=== PATIENT | male | born 1970 | race Caucasian/White ===

== ENCOUNTER 2019-09-23 13:39 | Observation (INO) | payer OTHER, SELFPAY ==
[2019-09-23 13:53] VITALS: BP 121/88; PULSE 89; RESP 19; TEMP 36.9; O2SAT 99
[2019-09-23 14:10] LABS: Basophils Percent Auto 0.3 % (0.2-1.2); Eosinophils Absolute Auto 0.1 K/mm3 (0-0.3); Eosinophils Percent Auto 0.9 % (0-4.4); Hematocrit 46.7 % (42.0-52.0); Hemoglobin 16.6 g/dL (14.0-18.0); Immature Granulocyte Absolute 0.03 K/mm3 (0.00-0.031); Immature Granulocyte Percent A 0.4 % (0-0.5); Lymphocytes Absolute Auto 1.25 K/mm3 (0.9-3.2); Mean Corpuscular HGB Conc 35.5 g/dl (32-36); Mean Corpuscular Volume 92.8 fl (80-100); Mean Platelet Volume 10.5 fl (7.4-10.4); Monocytes Absolute Auto 0.5 K/mm3 (0.1-0.6); Monocytes Percent Auto 6.8 % (2.6-8.5); Neutrophils Absolute Auto 5.9 K/mm3 (1.3-6.7); Neutrophils Percent Auto 75.6 % (45.5-73.1); Platelet Count Result 323 k/mm3 (150-375); Red Blood Count 5.03 M/mm3 (4.6-6.20); Red Cell Distribution Width 11.8 % (11.5-14.5); White Blood Count 7.8 K/mm3 (4.5-10.0)
[2019-09-23 14:20] LABS: Add Urine Microscopic? YES; Appearance Urine Cloudy (Clear); Bacteria Urine Trace /hpf; Bilirubin Urine Negative (Negative); Calcium Oxalate Crystals Urine Present /hpf; Color Urine Yellow (Yellow); Glucose Urine UA Negative (Negative); Hyaline Casts Urine 50+ /lpf; Ketones Urine Negative (Negative); Leukocyte Esterase Ur Negative LEU/UL (Negative); Mucus Urine Few /lpf; Nitrate Urine Negative (Negative); Protein Urine 1+ mg/dL (Negative); Specific Grav Ur 1.029 (1.001-1.035); Squamous Epithelial Cell Urine Rare /hpf (Few); Urobilinogen Urine Negative mg/dL (<2.0)
[2019-09-23 14:23] LABS: Blood Urine Negative (Negative)
[2019-09-23 14:24] LABS: Blood Urea Nitrogen 38 mg/dL (9-20); Calcium 10.5 mg/dL (8.4-10.2); Carbon Dioxide 26 mmol/L (22-30); Chloride 99 mmol/L (98-107); Creatine Kinase 1184 U/L (55-170); Estimated CRCL calculation 43 ml/min; Estimated Glomerular Filt Rate 38; Glucose 96 mg/dL (75-110); Potassium 4.3 mmol/L (3.4-5.0); Sodium 137 mmol/L (137-145)
[2019-09-23 15:20] VITALS: BP 129/84; PULSE 75; RESP 15; O2SAT 100
--- NOTE | 2019-09-23 15:45 | ED.GENADULT ---
HPI - General Adult General Chief complaint: Unspecified Stated complaint: dehydrated? Time Seen by Provider: 09/23/19 15:38 Source: patient Limitations: no limitations History of Present Illness HPI narrative: 49 years old white male presents with general muscle cramps mainly of the fingers and toes after working in 2 days ago and very hot environment, 99 Fahrenheit moving furniture from 1 house to another house. Related Data Allergies Allergy/AdvReac Type Severity Reaction Status Date / Time No Known Allergies Allergy Verified 09/23/19 13:55 Review of Systems Review of Systems: Narrative: CONSTITUTIONAL: Denies fever, chills, or sweats. EYES: Denies visual changes, redness, or discharge. ENT: Denies rhinorrhea, congestion, sore throat, or otalgia. CARDIOVASCULAR: Denies chest pain, palpitations, or edema. RESPIRATORY: Denies cough or dyspnea. GASTROINTESTINAL: Denies abdominal pain, nausea, vomiting, or diarrhea. GENITOURINARY: Denies dysuria or hematuria. SKIN: Denies rash or itching. MUSCULOSKELETAL: Denies back pain, joint pain, or myalgia. NEUROLOGIC: Denies headache, numbness, or weakness. PSYCHIATRIC: Denies anxiety or depression. PMFSH Family History Family History Grandparent Family history of cardiovascular disease Father Family history of cardiovascular disease, Onset Age: 48 Social History Social History Smoking status: Never smoker Alcohol intake: current Exam Narrative: Exam Narrative: General appearance: Well-developed, well-nourished Skin: Normal color Head: Normocephalic, nontraumatic Eyes: Clear conjunctiva ENT: Oropharynx normal, ears normal, nose normal Neck: Supple, nontender Chest and respiratory: Airway patent, no respiratory distress, no accessory muscle use Heart: Regular rate/rhythm Abdomen: Soft, nontender, no organomegaly, quiet bowel sounds Vascular: Normal peripheral pulses, normal capillary refill. Musculoskeletal: Normal range of motion, nontender back Neurologic: Alert and oriented ?3, NURSING PROGRAM CHAIR is normal as tested, no gross motor deficit Course Course Emergency Course: Improving Vital Signs Vital signs: Vital Signs Temperature 36.9 C 09/23/19 13:53 Pulse Rate 89 09/23/19 13:53 Respiratory Rate 19 09/23/19 13:53 Blood Pressure 121/88 09/23/19 13:53 Pulse Oximetry 99 09/23/19 13:53 Temperature 36.9 C 09/23/19 13:53 Pulse Rate 75 09/23/19 15:20 Respiratory Rate 15 09/23/19 15:20 Blood Pressure 129/84 09/23/19 15:20 Pulse Oximetry 100 09/23/19 15:20 Medical Decision Making MDM Narrative Medical decision making narrative: Dehydration, kidney failure, rhabdomyolysis is my concern. Labs, IV fluids ordered. Further plan to follow Vital Signs Vital Signs: Vital Signs Temperature 36.9 C 09/23/19 13:53 Pulse Rate 89 09/23/19 13:53 Respiratory Rate 19 09/23/19 13:53 Blood Pressure 121/88 09/23/19 13:53 Pulse Oximetry 99 09/23/19 13:53 Temperature 36.9 C 09/23/19 13:53 Pulse Rate 75 09/23/19 15:20 Respiratory Rate 15 09/23/19 15:20 Blood Pressure 129/84 09/23/19 15:20 Pulse Oximetry 100 09/23/19 15:20 Lab Data Result diagrams: 09/23/19 13:58 09/23/19 13:58 Labs: Lab Results 09/23/19 09/23/19 09/23/19 Range/Units 13:58 13:58 14:04 WBC 7.8 (4.5-10.0) K/mm3 RBC 5.03 (4.6-6.20) M/mm3 Hgb 16.6 (14.0-18.0) g/dL Hct 46.7 (42.0-52.0) % MCV 92.8 (80-100) fl MCH 33.0 (26-34) pg MCHC 35.5 (32-36) g/dl RDW 11.8 (11.5-14.5) % Plt Count 323 (150-3
[2019-09-23 16:03] VITALS: BP 124/89; PULSE 79; RESP 14; O2SAT 100
[2019-09-23] MEDS: SODIUM CHLORIDE 0.9% IV 1,000 ML 999 ML IV CONT ×2 (16:03→17:14)
[2019-09-23 17:13] VITALS: BP 133/90; PULSE 80; RESP 17; O2SAT 100
--- NOTE | 2019-09-23 17:23 | PC.NURSE ---
This patient, Enoch Woodson, was admitted to Medical Room 348-01. Patient/family oriented to hospital policies and general routines including ID bracelet, bed and alarms, visiting hours, pain management, procedures, bathroom and other care routines, personal items, smoking policy, room service/diet, and visiting hours. Valuables list has been completed. Information on how to activate the Rapid Response Team has been discussed. Patient/Family are encouraged to report perceived risks to care and to ask questions if they do not understand what they are told or what they should do.
[2019-09-23 17:46] VITALS: BP 133/90; PULSE 72; RESP 16; TEMP 36.7; O2SAT 99; BMI 27.9
[2019-09-23] MEDS: LACTATED RINGERS 1,000 ML 150 ML IV CONT (18:57)
[2019-09-23 21:10] VITALS: BP 101/71; PULSE 73; RESP 16; TEMP 37.1; O2SAT 99
--- NOTE | 2019-09-24 00:27 | PM.IMHP ---
H&P: HPI History of Present Illness Chief complaint: dehydration,jann,rhabdomyolysis Narrative: Enoch Woodson is a 49 year old male who has no prior medical history of taking any home medications. The patient stated he was out in the heat today. He has been moving out of his old house into his new house over the last 2 days. The patient stated that he was drenched with sweat and that he had been drinking some Gatorade. 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 He denied any nausea or any chest pain. He had no fever chills. The telecom specialist of the new home told him to go to the emergency room because he looks like he was dehydrated and had heat exhaustion. The patient received IV fluids once he got here and is now feeling much better. The cramps have resolved. His temperature was 36.9 degree C. his creatinine was 1.9 BUN 38. Kinase is 1184. A nationally Toradol had been ordered for the patient but the ER doctor stated that he canceled it when he relies the patient was in acute renal failure. Date of service 09/23/2019 Review of Systems Review of Systems: All systems reviewed & are unremarkable except as noted in HPI and below Constitutional: Constitutional: Reports as per HPI and Reports no additional constitutional complaints Eyes: Eyes: Reports as per HPI and Reports no additional eye complaints ENT: Reports system reviewed and no additional complaints, except as documented and Reports Normal hearing present Cardiovascular: Cardiovascular: Reports no additional cardiovascular complaints Respiratory: Respiratory: Reports no additional respiratory complaints and Reports no additional respiratory complaints Gastrointestinal: Gastrointestinal: Reports as per HPI and Reports no additional gastrointestinal complaints Musculoskeletal: Musculoskeletal: Reports no additional musculoskeletal complaints Integumentary/Breasts: Skin/Breast: Reports system reviewed and no additional complaints, except as docu and Reports as per HPI Neurologic: Reports system reviewed and no additional complaints, except as documented, Reports as per HPI and Reports Normal hearing present Psychiatric: Psychiatric: Reports no additional psychiatric complaints and Reports as per HPI Endocrine: Endocrine: Reports no additional endocrine complaints Hematologic/Lymphatic: Hematologic/Lymphatic: Reports no additional hematologic/lymphatic complaints Allergic/Immunologic: Allergic/Immunologic: Reports no additional allergic/immunologic complaints [facility] Past Medical History Medical History (Updated 09/24/19 @ 00:31 by Katiana Gonzalez NP) No pertinent past medical history Surgical History Surgical History (Updated 09/24/19 @ 00:31 by Katiana Gonzalez NP) No significant past surgical history Family History Family History Grandparent Family history of cardiovascular disease Father Family history of cardiovascular disease, Onset Age: 48 Social History Social History (Updated 09/24/19 @ 00:32 by Katiana Gonzalez NP) Social History: The patient lives at home with his . His is his durable power disability attorney for healthcare. The patient works as an senior accountant cpa. He has 4 children. He is a full code. Never smoked. Has occasional beer he drinks [place] 2 beers a week maybe. No marijuana or illicit drugs. Smoking status: Never smoker Alcohol intake: current Drinks per week: 2 Substance use: never Spiritual care concerns: No Meds Home Medications and Allergies Home Medications Medication Instructions Recorded Confirmed Type No Home Medications 09/23/19 09/23/19 History Allergies Allergy/AdvReac Type Severity Reaction Status Date / Time No Known Allergies Allergy Verified 09/23/19 13:55 Vital Sig
[2019-09-24] MEDS: LACTATED RINGERS 1,000 ML 150 ML IV CONT ×2 (01:18→08:14)
[2019-09-24 05:23] VITALS: BP 103/58; PULSE 64; RESP 18; TEMP 36.7; O2SAT 100
[2019-09-24 05:38] LABS: Basophils Percent Auto 0.6 % (0.2-1.2); Eosinophils Absolute Auto 0.1 K/mm3 (0-0.3); Eosinophils Percent Auto 2.1 % (0-4.4); Hematocrit 40.7 % (42.0-52.0); Immature Granulocyte Absolute 0.02 K/mm3 (0.00-0.031); Immature Granulocyte Percent A 0.4 % (0-0.5); Lymphocytes Absolute Auto 1.79 K/mm3 (0.9-3.2); Lymphocytes Percent Auto 33.5 % (18.3-44.2); Mean Corpuscular HGB Conc 34.4 g/dl (32-36); Mean Corpuscular Hemoglobin 32.9 pg (26-34); Mean Corpuscular Volume 95.8 fl (80-100); Mean Platelet Volume 10.5 fl (7.4-10.4); Monocytes Absolute Auto 0.5 K/mm3 (0.1-0.6); Monocytes Percent Auto 8.8 % (2.6-8.5); Neutrophils Absolute Auto 2.9 K/mm3 (1.3-6.7); Neutrophils Percent Auto 54.6 % (45.5-73.1); Platelet Count Result 236 k/mm3 (150-375); Red Blood Count 4.25 M/mm3 (4.6-6.20); Red Cell Distribution Width 11.9 % (11.5-14.5); White Blood Count 5.3 K/mm3 (4.5-10.0)
[2019-09-24 05:54] LABS: Creatine Kinase 662 U/L (55-170)
[2019-09-24 05:58] LABS: Alanine Aminotransferase 25 U/L (4-50); Albumin Level 3.7 g/dL (3.5-5.1); Alkaline Phosphatase 43 U/L (38-126); Aspartate Amino Transferase 43 U/L (17-59); Bilirubin,Total 1.2 mg/dL (0.2-1.3); Blood Urea Nitrogen 27 mg/dL (9-20); CRP 0.9 mg/dL (<1.0); Calcium 8.4 mg/dL (8.4-10.2); Carbon Dioxide 28 mmol/L (22-30); Chloride 106 mmol/L (98-107); Estimated CRCL calculation 60 ml/min; Estimated Glomerular Filt Rate > 60; Glucose 95 mg/dL (75-110); Magnesium 2.3 mg/dL (1.6-2.3); Potassium 3.9 mmol/L (3.4-5.0); Sodium 138 mmol/L (137-145)
--- NOTE | 2019-09-24 09:51 | PM.DS ---
DS: Admitting Diagnosis Admitting Diagnosis Admitting Diagnosis: Acute kidney failure, unspecified DS: Discharge Diagnosis Discharge Diagnosis (1) JASPER (acute kidney injury): Code(s): N17.9 - Acute kidney failure, unspecified Status: Acute Assessment and Plan: Cr elevated at 1.9 on arrival, improved to 1.2 the following morning with IV hydration. Anderson to be secondary to heat exhaustion and dehydration. Repeat BMP in 1 week. (2) Heat exhaustion: Qualifiers: Encounter type: subsequent encounter Qualified Code(s): T67.5XXD - Heat exhaustion, unspecified, subsequent encounter Code(s): T67.5XXA - Heat exhaustion, unspecified, initial encounter Status: Acute Assessment and Plan: (3) Rhabdomyolysis: Qualifiers: Rhabdomyolysis type: non-traumatic Qualified Code(s): M62.82 - Rhabdomyolysis Code(s): M62.82 - Rhabdomyolysis Status: Acute Assessment and Plan: Related to above. Out moving into his new home, carrying heavy furniture in the heat. Anderson to be secondary to heat exhaustion and dehydration. CK 1184 on arrival and improved to 662 the following day. Encouraged oral intake this week. DS: Summary Hospital Course Hospital Course: Date of Service 09/24/19 Mr. Woodson is a pleasant healthy 49yo M who presented to the ED for evaluation of arm and leg muscle cramps and weakness after strenuous work outdoors in the heat while moving into his new home. CK on arrival was elevated to 1184 and improved overnight with IV fluids to 662 the following morning. Creatinine elevated to 1.9 on arrival, 1.2 day of discharge. He was treated with IV fluids for acute renal failure and rhabdomyolysis. He was feeling improved and was hemodynamically stable for discharge 09/24/19 with instructions to repeat blood work in 1 week to recheck CK and renal function. Time Spent with Patient Time attestation: Total time spent providing and/or coordinating discharge services: 35 minutes Exam Narrative: Exam Narrative: General: Well-appearing male resting supine in bed in no acute distress. HEENT: Normocephalic, EOMI, oral mucosa moist. Cardiovascular: Rate and rhythm are regular. No notable murmur, rub, or gallop. Respiratory: Lungs clear to auscultation all lee. Non-labored breathing. Abdomen: Soft, non-tender, non-distended, bowel sounds present. Extremities: Peripheral pulses intact. No edema. Neuro: No focal neurological deficits. Speech is clear. DS: Data Data Completed and Pending Labs on day of discharge: Last Vital Signs Temp 98.1 F 09/24/19 05:23 Pulse 64 09/24/19 05:23 Resp 18 09/24/19 05:23 BP 103/58 L 09/24/19 05:23 Pulse Ox 100 09/24/19 05:23 Laboratory Tests 09/24/19 05:20 09/24/19 05:20 Discharge Plan Discharge Attending physician on discharge: Chela Cárdenas Consulting providers: Katiana Gonzalez ; Tierra Cordova Discharging Clinician: Tierra Cordova Anticipated Discharge Date/Time: 09/24/19 09:29 Patient Disposition: Home, Self-Care Activity: as tolerated Diet: as tolerated Discharge Instructions: You were treated for rhabdomyolysis and heat exhaustion which caused acute kidney injury. Your lab work this morning has improved with IV fluids. Continue to drink plenty of water and avoid the heat. Take it easy with heavy lifting this week. Attached in an order to get your blood work rechecked in 1 week to monitor kidney function and CK level, with results to Dr Lane's office. Call Dr Lane's office or return to ER for worsening or concerning symptoms. In light of the current Coronovirus spread, is recommended that you call your primary care provider if you begin to develop shortness of breath, cough, or fevers > 100.4 F. Patient Instructions: Antibiotic Form, Acute Kidney Injury (DC), Heat
== END 2019-09-24 10:17 | disposition home or self-care (01) ==
LOC: ANHED 16:50 → ANH3MED 17:17
PROVIDERS: Emergency Medicine; Nurse Practitioner; Admitting Provider Internal Medicine; Emergency Provider Emergency Medicine; PCP Family Medicine; Visit Provider Family Medicine
DX: N17.9 Acute kidney failure, unspecified (principal); T67.5XXA Heat exhaustion, unspecified, initial encounter; X30.XXXA Exposure to excessive natural heat, initial encounter; M62.82 Rhabdomyolysis
CPT/HCPCS: 36415; 80048; 80053; 81001; 82550; 83735; 83874; 84443; 85025; 86140; 87086; 96360; 96361; 99285; G0378; J7030; J7120

== ENCOUNTER 2020-11-27 11:55 | Outpatient (CLI) | payer OTHER, SELFPAY ==
--- NOTE | ~2020-11-27 | XR_ITS ---
EXAMINATION: XR foot RT min 3V DATE: 11/27/2020 12:08 INDICATION: Cramping and spasm at the third toe of the right foot. TECHNIQUE: Dorsoplantar, two oblique and lateral views of the right foot were obtained. COMPARISON: None. FINDINGS: Alignment is normal. No fracture. Joint spaces are normal. Small enthesopathic ossicle at the distal Achilles tendon. Soft tissues are unremarkable. IMPRESSION: 1. No osseous abnormality. Reviewed, dictated and finalized at location A. IMPRESSION: 1. No osseous abnormality.
== END 2020-11-27 11:56 | disposition home or self-care (01) ==
LOC: ANHBWCIMG 11:56
PROVIDERS: PCP Family Medicine; Visit Provider Family Medicine
DX: R25.2 Cramp and spasm (principal); M79.671 Pain in right foot
CPT/HCPCS: 73630

== ENCOUNTER 2020-11-30 09:39 | Emergency (ER) | payer OTHER, SELFPAY ==
[2020-11-30 09:40] VITALS: BP 127/82; PULSE 86; RESP 20; TEMP 36.3; O2SAT 99
--- NOTE | 2020-11-30 09:57 | ED.URI ---
HPI - URI/Sore Throat General Chief Complaint: Upper Respiratory Infection Stated Complaint: Ear complaint Time Seen by Provider: 11/30/20 09:46 Source: patient and RN notes reviewed Mode of arrival: ambulatory Limitations: no limitations History of Present Illness HPI Narrative: Patient presents today complaining of 1 week history of bilateral ear pressure, right greater than left. Patient was popping his ear a few days ago, popped his right ear and now has decreased hearing. He has also had sinus pain and pressure for several days. Reports it resolved 2 days ago, then returned. Denies cough or sore throat. He has tried swimmer's ear drops for his ear without relief. He has tried Sudafed, DayQuil, and NyQuil for his sinuses without relief. MD elicited complaint: nasal congestion, sinus pain and other (Right ear with decreased hearing) Related Data Allergies Allergy/AdvReac Type Severity Reaction Status Date / Time No Known Allergies Allergy Verified 11/27/20 10:58 Review of Systems Review of Systems: CONSTITUTIONAL: Denies body aches, fever, chills, or sweats. EYES: Denies visual changes, redness, or discharge. ENT: Denies rhinorrhea, sore throat. + Congestion, sinus pressure, right ear with decreased hearing CARDIOVASCULAR: Denies chest pain, palpitations, or edema. RESPIRATORY: Denies cough or dyspnea. GASTROINTESTINAL: Denies abdominal pain, nausea, vomiting, or diarrhea. GENITOURINARY: Denies dysuria or hematuria. SKIN: Denies rash, itching, or wounds. MUSCULOSKELETAL: Denies back pain, joint pain, or myalgia. NEUROLOGIC: Denies headache, numbness, tingling, or weakness. PSYCH: Denies depression or anxiety. [facility] Past Medical History Medical History Allergies Elbow pain No pertinent past medical history Surgical History Surgical History No significant past surgical history Family History Family History Grandparent Family history of cardiovascular disease Father Family history of cardiovascular disease, Onset Age: 48 Grandparent Mesothelioma Social History Social History Social History: The patient lives at home with his . His is his durable power tax associate attorney for healthcare. 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 He is a full code. Never smoked. Has occasional beer he drinks [place] 2 beers a week maybe. No marijuana or illicit drugs. Smoking status: Never smoker Alcohol intake: current Drinks per week: 2 Alcohol use details: beer/wine Substance use: never Spiritual care concerns: No Comments At time of signature, I have reviewed and agree with nursing past medical, surgical, social and family history unless otherwise noted. Please see nursing chart for further information. There is no relevant family history pertinent to the presenting complaint Exam Narrative: GENERAL: Well-appearing, well-nourished, and in no acute distress. HEAD: Normocephalic, atraumatic. EYES: EOMI. No redness or drainage. Conjunctivae normal. ENT: Mucous membranes pink and moist. Nares clear. No rhinorrhea. Left TM normal. Right TM erythematous with rupture. Throat normal. Uvula midline. NECK: Normal AROM. Supple. No lymphadenopathy. CHEST: No respiratory distress. Clear to auscultation. HEART: Regular rate and rhythm. No murmur appreciated. Normal peripheral pulses. EXTREMITIES: Normal range of motion. No edema. SKIN: Warm, dry, no rash. Capillary refill normal. Normal skin turgor. NEURO: No focal deficits. Alert and oriented x3. Gait steady. PSYCH: Normal affect. No signs of depression or anxiety. Course Vital Signs Vital signs: Vital Signs Temperature 97.3 F L 11/30/20 09:40 Pulse Rate 86 11/30/20 09:40 Res
== END 2020-11-30 10:05 | disposition home or self-care (01) ==
PROVIDERS: Emergency Provider Nurse Practitioner; PCP Family Medicine
DX: H66.91 Otitis media, unspecified, right ear (principal); H72.91 Unspecified perforation of tympanic membrane, right ear; J01.90 Acute sinusitis, unspecified
CPT/HCPCS: 99213; G0463